=== PATIENT | female | born 1975 | race African-American/Black ===

== ENCOUNTER 2017-06-22 06:43 | Inpatient (IN) | payer MEDICAID, OTHER ==
[~2017-06-22] VITALS: Ht 162.6 cm; Wt 56.5 kg
[~2017-06-22 06:43] MED LIST: MACR100 PO; QUET200T PO; Trazodone Hcl PO
[2017-06-22] MEDS ORDERED: GABA-529 PO (06:49)
[2017-06-22 07:07] LABS: BASOPHILS % (AUTO) 0.1 % (0.0-2.0); EOSINOPHILS % (AUTO) 0.1 % (1.0-6.0); HEMOGLOBIN 14.6 g/dL (12.0-16.0); LYMPHOCYTES # (AUTO) 1.3 K/uL (1.0-4.8); LYMPHOCYTES % (AUTO) 12.4 % (22.0-44.0); MEAN CORPUSCULAR HEMOGLOBIN 31.1 pg (26.0-34.0); MEAN CORPUSCULAR HGB CONC 33.9 G/dL (31.0-37.0); MEAN CORPUSCULAR VOLUME 92 fL (80-100); MONOCYTES # (AUTO) 0.4 K/uL (0.1-1.0); NEUTROPHILS # (AUTO) 8.6 K/uL (1.8-7.7); NEUTROPHILS % (AUTO) 83.4 % (40.0-70.0); PLATELET COUNT (AUTO) 472 K/uL (150-450); RED BLOOD CELL COUNT(AUTO) 4.68 MIL/uL (4.00-5.20); RED CELL DISTRIBUTION WIDTH 14.7 % (11.5-14.5)
[2017-06-22 07:19] LABS: ANION GAP 10 mmol/L (8-16); CALCIUM, TOTAL 9.1 mg/dL (8.8-10.5); CARBON DIOXIDE 30 mmol/L (22-29); CHLORIDE 97 mmol/L (98-107); CREATININE 0.74 mg/dL (0.60-1.30); GLOMERULAR FILTR. RATE CALC > 60 mL/min (>60); GLUCOSE,RANDOM 75 mg/dL (70-110); POTASSIUM 3.5 mmol/L (3.5-5.1); SODIUM SERUM 137 mmol/L (136-145); UREA NITROGEN, BLOOD 11 mg/dL (7-18)
[2017-06-22 07:25] LABS: ALANINE AMINOTRANSFERASE 41 U/L (12-78); ALBUMIN 4.9 g/dL (3.4-5.0); ALKALINE PHOSPHATASE 76 U/L (46-116); ASPARTATE AMINOTRANSFERASE 44 U/L (15-37); BILIRUBIN,TOTAL 0.3 mg/dL (0.1-1.0)
[2017-06-22 08:08] LABS: AMPHET/METH SCREEN,URINE POSITIVE (NEGATIVE); BARBITURATE SCREEN, URINE NEGATIVE (NEGATIVE); BENZODIAZEPINES SCREEN,URINE NEGATIVE (NEGATIVE); CANNABINOID SCREEN,URINE NEGATIVE (NEGATIVE); COCAINE SCREEN,URINE POSITIVE (NEGATIVE); METHADONE SCREEN, URINE NEGATIVE (NEGATIVE); OPIATE SCREEN,URINE NEGATIVE (NEGATIVE)
[2017-06-22 08:09] LABS: PHENCYCLIDINE SCREEN,URINE NEGATIVE (NEGATIVE)
[2017-06-22] MEDS ORDERED: ZOLPIDEM TARTRATE 10 MG TABLET PO PRN (08:15)
[2017-06-22] MEDS ORDERED: LORazepam 2 MG TABLET PO ONE (08:30)
[2017-06-22 09:03] LABS: CHOLESTEROL 201 mg/dL (131-200); HDL CHOLESTEROL 103 mg/dL (40-60); LDL CHOL (CALC.) 91 mg/dL (0-130); THYROID STIMULATING HORMONE 1.44 uIU/mL (0.36-3.74); TRIGLYCERIDES 37 mg/dL (15-150)
[2017-06-22 10:00] VITALS: BP 144/91
[2017-06-22 16:29] VITALS: BP 112/89
[2017-06-22] MEDS: QUEtiapine FUMARATE 200 MG TABLET PO SCH (21:58)
[2017-06-22] MEDS: TraZODone HCL 50 MG TABLET PO SCH (21:58)
[2017-06-23] MEDS: HALOPERIDOL 5 MG TABLET PO PRN (07:36)
[2017-06-23] MEDS: LORazepam 2 MG TABLET PO PRN (07:36)
[2017-06-23 08:00] VITALS: BP 140/61
[2017-06-23 16:45] VITALS: BP 134/81
[2017-06-23] MEDS: QUEtiapine FUMARATE 200 MG TABLET PO SCH (20:32)
[2017-06-23] MEDS: TraZODone HCL 50 MG TABLET PO SCH (20:32)
[2017-06-24 01:48] VITALS: BP 103/70
[2017-06-24 10:04] LABS: BILIRUBIN,URINE NEGATIVE (NEGATIVE); GLUCOSE, URINE (UA) NEGATIVE (NEGATIVE); KETONES,URINE NEGATIVE (NEGATIVE); LEUKOCYTE ESTERASE ,URINE NEGATIVE (NEGATIVE); NITRATE,URINE NEGATIVE (NEGATIVE); OCCULT BLOOD,URINE NEGATIVE (NEGATIVE); PROTEIN,URINE NEGATIVE (NEGATIVE); UROBILINOGEN,URINE 0.2 mg/dL (<=1.0)
[2017-06-24 10:06] LABS: APPEARANCE,URINE CLEAR (CLEAR)
[2017-06-24 11:40] VITALS: BP 120/64
[2017-06-24] MEDS: HALOPERIDOL 5 MG TABLET PO PRN (11:56)
[2017-06-24] MEDS: LORazepam 2 MG TABLET PO PRN (11:56)
[2017-06-24 18:48] VITALS: BP 96/57
[2017-06-24] MEDS: TraZODone HCL 50 MG TABLET PO SCH (21:44)
[2017-06-24] MEDS: QUEtiapine FUMARATE 200 MG TABLET PO SCH (21:44)
[2017-06-25 04:55] VITALS: BP 127/75
[2017-06-25] MEDS: LORazepam 2 MG TABLET PO PRN (07:38)
[2017-06-25] MEDS: HALOPERIDOL 5 MG TABLET PO PRN (07:38)
[2017-06-25 10:29] VITALS: BP 129/60
[2017-06-25 17:40] VITALS: BP 117/74
[2017-06-25] MEDS: QUEtiapine FUMARATE 200 MG TABLET PO SCH (21:28)
[2017-06-25] MEDS: TraZODone HCL 50 MG TABLET PO SCH (21:28)
[2017-06-26 02:30] VITALS: BP 108/76
[2017-06-26 08:54] VITALS: BP 109/68
[2017-06-26] MEDS: LORazepam 2 MG TABLET PO PRN (09:28)
[2017-06-26] MEDS: HALOPERIDOL 5 MG TABLET PO PRN (13:53)
[2017-06-26 17:27] VITALS: BP 121/60
[2017-06-26] MEDS: QUEtiapine FUMARATE 200 MG TABLET PO SCH (20:19)
[2017-06-26] MEDS: TraZODone HCL 50 MG TABLET PO SCH (20:19)
[2017-06-27] MEDS: HALOPERIDOL 5 MG TABLET PO PRN ×2 (05:58→15:45)
[2017-06-27] MEDS: LORazepam 2 MG TABLET PO PRN ×2 (05:58→15:45)
[2017-06-27 08:00] VITALS: BP 111/66
[2017-06-27 16:33] VITALS: BP 106/58
[2017-06-27] MEDS: TraZODone HCL 50 MG TABLET PO SCH (20:33)
[2017-06-27] MEDS: QUEtiapine FUMARATE 200 MG TABLET PO SCH (20:33)
[2017-06-28] MEDS: HALOPERIDOL 5 MG TABLET PO PRN ×2 (06:45→11:52)
[2017-06-28 08:41] VITALS: BP 114/56
[2017-06-28] MEDS: LORazepam 2 MG TABLET PO PRN (09:55)
[2017-06-28 16:30] VITALS: BP 138/77
[2017-06-28] MEDS: QUEtiapine FUMARATE 200 MG TABLET PO SCH (21:14)
[2017-06-28] MEDS: TraZODone HCL 50 MG TABLET PO SCH (21:14)
[2017-06-29 05:17] VITALS: BP 126/80
[2017-06-29] MEDS: HALOPERIDOL 5 MG TABLET PO PRN (08:55)
[2017-06-29] MEDS: LORazepam 2 MG TABLET PO PRN (08:55)
[2017-06-29 10:23] VITALS: BP 116/69
== END 2017-06-29 13:30 | disposition home or self-care (01) | DRG 750 ==
LOC: EMS 06:45 → 3EI 09:17 → EMS 09:32
PROVIDERS: ADMIT Psychiatry & Neurology Psychiatry; ATTEND Psychiatry & Neurology Psychiatry
DX: F25.9 Schizoaffective disorder, unspecified (principal); R45.851 Suicidal ideations; F19.10 Other psychoactive substance abuse, uncomplicated; F32.9 Major depressive disorder, single episode, unspecified; G47.00 Insomnia, unspecified; F17.210 Nicotine dependence, cigarettes, uncomplicated; Z91.5 Personal history of self-harm; Z79.899 Other long term (current) drug therapy; Z87.59 Personal history of other complications of pregnancy, childbirth and the puerperium
CPT/HCPCS: 84439; 84443; 99285; G0480

== ENCOUNTER 2022-07-11 08:49 | Emergency (ER) | payer MEDICAID, MEDICARE, OTHER ==
[~2022-07-11] VITALS: Ht 162.6 cm; Wt 61.4 kg
[~2022-07-11 08:49] MED LIST changes: -MACR100 PO; +NALT50TA6 PO; -Trazodone Hcl PO
[2022-07-11 09:41] LABS: BASOPHILS % (AUTO) 0.5 % (0.0-2.0); EOSINOPHILS % (AUTO) 0.4 % (1.0-6.0); HEMATOCRIT 37.8 % (36-46); HEMOGLOBIN 12.6 g/dL (12.0-16.0); LYMPHOCYTES # (AUTO) 1.1 K/uL (1.0-4.8); LYMPHOCYTES % (AUTO) 13.4 % (22.0-44.0); MEAN CORPUSCULAR HEMOGLOBIN 30.7 pg (26.0-34.0); MEAN CORPUSCULAR HGB CONC 33.3 G/dL (31.0-37.0); MEAN CORPUSCULAR VOLUME 92 fL (80-100); MONOCYTES # (AUTO) 0.7 K/uL (0.1-1.0); MONOCYTES % (AUTO) 8.4 % (2.0-9.0); NEUTROPHILS # (AUTO) 6.6 K/uL (1.8-7.7); NEUTROPHILS % (AUTO) 77.3 % (40.0-70.0); PLATELET COUNT (AUTO) 390 K/uL (150-450); RED CELL DISTRIBUTION WIDTH 13.4 % (11.5-14.5)
[2022-07-11] MEDS ORDERED: IBUPROFEN 600 MG TABLET PO ONE (09:45)
[2022-07-11 09:50] LABS: ANION GAP 9 mmol/L (8-16); CALCIUM, TOTAL 9.1 mg/dL (8.8-10.5); CARBON DIOXIDE 27 mmol/L (22-29); CHLORIDE 96 mmol/L (98-107); CREATININE 0.73 mg/dL (0.60-1.30); GLOMERULAR FILTR. RATE CALC > 60 mL/min (>60); GLUCOSE,RANDOM 69 mg/dL (70-110); POTASSIUM 4.4 mmol/L (3.5-5.1); SODIUM SERUM 132 mmol/L (136-145); UREA NITROGEN, BLOOD 9 mg/dL (7-18)
[2022-07-11 09:54] LABS: ALANINE AMINOTRANSFERASE 25 U/L (12-78); ALBUMIN 3.9 g/dL (3.4-5.0); ALKALINE PHOSPHATASE 83 U/L (46-116); ASPARTATE AMINOTRANSFERASE 34 U/L (15-37); BILIRUBIN,TOTAL 0.6 mg/dL (0.1-1.0); TOTAL PROTEIN, SERUM 7.9 g/dL (6.4-8.2)
[2022-07-11] MEDS ORDERED: LORazepam 1 MG TABLET PO ONE (10:00)
[2022-07-11] MEDS ORDERED: HALOPERIDOL 5 MG TABLET PO ONE (10:00)
[2022-07-11] MEDS ORDERED: IBUP-1492 PO (10:20)
[2022-07-11 10:43] VITALS: BP 140/66
== END 2022-07-11 10:48 | disposition home or self-care (01) ==
LOC: EMS 08:59
DX: F20.9 Schizophrenia, unspecified (principal); F19.10 Other psychoactive substance abuse, uncomplicated; F15.10 Other stimulant abuse, uncomplicated; F14.10 Cocaine abuse, uncomplicated; I31.9 Disease of pericardium, unspecified; F32.A Depression, unspecified; F17.210 Nicotine dependence, cigarettes, uncomplicated
CPT/HCPCS: 99285; 71045; 80053; 84484; 85025; 36415; 93005; G0480